=== PATIENT | female | born 1985 | race Caucasian/White ===

== ENCOUNTER 2021-03-07 19:41 | Emergency (ER) | payer OTHER ==
[~2021-03-07] VITALS: Ht 152.4 cm; Wt 56.2 kg
[2021-03-08] MEDS ORDERED: KETO10TA2 PO (01:35)
== END 2021-03-08 01:46 ==
LOC: ER 19:41
DX: N93.8 Other specified abnormal uterine and vaginal bleeding (principal)